=== PATIENT | female | born 1955 | race Caucasian/White ===

== ENCOUNTER 2016-09-15 12:45 | Emergency (ER) | payer OTHER, SELFPAY ==
[2016-09-15] MEDS ORDERED: Sodium Chloride 0.9% 500 ML IV ONE (13:18)
[2016-09-15 14:03] LABS: BASO % 0.6 % (0.0-2.0); EOS # 0.3 K/uL (0.0-0.7); EOS % 5.1 % (0.0-4.0); HEMATOCRIT 32.6 % (34.0-47.0); LYMPH # 1.9 K/uL (1.0-4.3); LYMPH % 27.7 % (20.0-40.0); MEAN CELL VOLUME 86.7 fL (81.0-99.0); MEAN CORPUSCULAR HEMOGLOBIN 28.7 pg (27.0-31.0); MEAN CORPUSCULAR HGB CONC 33.1 g/dL (33.0-37.0); MEAN PLATELET VOLUME 7.6 fL (7.2-11.7); MONO # 0.7 K/uL (0.0-0.8); MONO % 10.1 % (0.0-10.0); WHITE BLOOD COUNT 6.7 K/uL (4.8-10.8)
[2016-09-15 14:12] LABS: CHLORIDE 103 mmol/L (98-107); POTASSIUM 3.4 mmol/L (3.6-5.2); SODIUM 140 mmol/L (132-148)
[2016-09-15 14:14] LABS: ALB/GLOB RATIO 1.1 (1.0-2.1); ALKALINE PHOSPHATASE 112 U/L (38-126); AST/SGOT 32 U/L (14-36); BILIRUBIN,TOTAL 0.5 mg/dL (0.2-1.3); CARBON DIOXIDE 24 mmol/L (22-30); GFR AFRICAN-AMERICAN > 60; TOTAL PROTEIN 7.1 g/dL (6.3-8.3)
[2016-09-15 14:15] LABS: ALT/SGPT 13 U/L (9-52); BLOOD UREA NITROGEN 19 mg/dL (7-17); CALCIUM 8.7 mg/dl (8.6-10.4); GLUCOSE,RANDOM 88 mg/dL (65-105)
[2016-09-15 14:54] LABS: RBC URINE < 1 /hpf (0-3); URINE BILIRUBIN NEGATIVE (NEGATIVE); URINE BLOOD NEGATIVE (NEGATIVE); URINE COLOR Straw (YELLOW); URINE GLUCOSE (UA) NORMAL (Normal); URINE KETONE NEGATIVE (NEGATIVE); URINE LEUKOCYTE ESTERASE NEG Leu/uL (Negative); URINE PROTEIN NEGATIVE (NEGATIVE); URINE UROBILINOGEN NORMAL mg/dL (0.2-1.0); WBC URINE < 1 /hpf (0-5)
[2016-09-15] MEDS ORDERED: Sodium Chloride 0.9% 1,000 ML ONE (14:54)
--- NOTE | 2016-09-15 15:37 | RAD ---
HISTORY: Cough COMPARISON: Chest x-ray performed 05/11/16 TECHNIQUE: Chest PA and lateral FINDINGS: Examination limited by habitus. LUNGS: No focal consolidation. Please note that chest x-ray has limited sensitivity for the detection of pulmonary masses. PLEURA: No significant pleural effusion identified. No definite pneumothorax . CARDIOVASCULAR: Borderline cardiomegaly. OSSEOUS STRUCTURES: No acute osseous abnormality identified. VISUALIZED UPPER ABDOMEN: Unremarkable. OTHER FINDINGS: None. IMPRESSION: No focal consolidation, significant pleural effusion, or definite pneumothorax identified.
[2016-09-15 15:45] VITALS: BP 137/82; PULSE 72; RESP 16; TEMP 98.2; O2SAT 98
--- NOTE | 2016-09-15 15:53 | C.PDOC ---
Time Seen by Provider: 09/15/16 13:11 Chief Complaint (Nursing): Flu-like Symptoms History Per: Patient, Family, Shoe Treer History/Exam Limitations: language barrier Onset/Duration Of Symptoms: Days (about 2 months) Current Symptoms Are (Timing): Still Present Associated Symptoms: Fever (subjective), Sore Throat, Cough, Myalgias, Nasal Congestion Severity: Moderate Additional History Per: Prior Records Past Medical History Reviewed: Historical Data, Nursing Documentation, Vital Signs Vital Signs: Last Vital Signs Temp 98.2 F 09/15/16 15:44 Pulse 72 09/15/16 15:44 Resp 16 09/15/16 15:44 BP 137/82 09/15/16 15:44 Pulse Ox 98 09/15/16 15:44 - Medical History PMH: HTN Surgical History: Cholecystectomy Family History: States: Unknown Family Hx - Social History Hx Tobacco Use: No Hx Alcohol Use: No Hx Substance Use: No - Immunization History Hx Tetanus Toxoid Vaccination: No Hx Influenza Vaccination: No Hx Pneumococcal Vaccination: No Review Of Systems Except As Marked, All Systems Reviewed And Found Negative. Constitutional: Positive for: Malaise ENT: Positive for: Ear Pain, Nose Congestion (sneezing), Throat Pain Cardiovascular: Negative for: Chest Pain Respiratory: Positive for: Cough. Negative for: Shortness of Breath, Hemoptysis , Sputum Gastrointestinal: Negative for: Vomiting, Diarrhea Genitourinary: Negative for: Dysuria Musculoskeletal: Negative for: Neck Pain Skin: Positive for: Rash Neurological: Negative for: Weakness, Numbness, Seizures, Altered Mental Status Physical Exam - Physical Exam Appears: Non-toxic, No Acute Distress Skin: Normal Color, Warm, Dry, No Rash Head: Atraumatic, Normacephalic Eye(s): bilateral: Normal Inspection, PERRL, EOMI Ear(s): Bilateral: Normal Oral Mucosa: Moist, No Drooling, No Trismus Throat: Normal Neck: Normal ROM, Supple Lymphatic: No Adenopathy Cardiovascular: Rhythm Regular Respiratory: Normal Breath Sounds, No Accessory Muscle Use Gastrointestinal/Abdominal: Soft, No Tenderness Back: No CVA Tenderness Extremity: Normal ROM, No Pedal Edema, No Calf Tenderness Neurological/Psych: Oriented x3, Normal Motor, Normal Sensation ED Course And Treatment - Laboratory Results Result Diagrams: 09/15/16 13:57 09/15/16 13:57 Lab Interpretation: No Acute Changes O2 Sat by Pulse Oximetry: 98 Pulse Ox Interpretation: Normal - Radiology CXR: Viewed By Me, Read By Radiologist CXR Interpretation: Yes: No Acute Disease Reassessment Condition: Improved Disposition Counseled Patient/Family Regarding: Studies Performed, Diagnosis, Need For Followup, Rx Given - Disposition Referrals: [facility] [Outside] Disposition: HOME/ ROUTINE Disposition Time: 15:55 Condition: IMPROVED Additional Instructions: Follow up in the clinic for further evaluation and treatment. Return to the ER if you develop shortness of breath, worsening of symptoms or if you have any other concerns. Prescriptions: Hydrocortisone 1% Cream [Cortizone 1% Cream] 1 appl TP BID #1 tube Loratadine [Claritin] 10 mg PO DAILY PRN #30 tab PRN Reason: Allergy Symptoms Instructions: Allergies (ED) Forms: Gen Discharge Inst Citizen Of [place], General Discharge Instructions Print Language: KYRGYZ - Clinical Impression Clinical Impression: Allergic symptoms
== END 2016-09-15 16:31 | disposition home or self-care (01) ==
LOC: C.ER 12:45
DX: T78.40XA Allergy, unspecified, initial encounter (principal); X58.XXXA Exposure to other specified factors, initial encounter
CPT/HCPCS: 71020; 80053; 81001; 83690; 85025; 87804; 96361; 96374; 96375; 99283; J1885; J7040

== ENCOUNTER 2016-09-15 23:57 | Emergency (ER) | payer OTHER ==
[2016-09-16] MEDS ORDERED: Naproxen 550 mg Tab PO STA (00:38)
[2016-09-16] MEDS ORDERED: Naproxen 550 mg Tab PO ONE (00:45)
--- NOTE | 2016-09-16 00:56 | C.PDOC ---
History Of Present Illness I saw pt earlier in the day for same symptoms, pt returned to the ED tonight because she developed fever as well. Time Seen by Provider: 09/16/16 00:35 Chief Complaint (Nursing): Fever History Per: Patient, Family Onset/Duration Of Symptoms: Days Current Symptoms Are (Timing): Still Present Associated Symptoms: Fever, Sore Throat, Cough, Myalgias, Nasal Congestion Severity: Moderate Additional History Per: Prior Records Past Medical History Reviewed: Historical Data, Nursing Documentation, Vital Signs Vital Signs: Last Vital Signs Temp 101.0 F H 09/16/16 00:15 Pulse 110 H 09/16/16 00:15 Resp 20 09/16/16 00:15 BP 153/76 H 09/16/16 00:15 Pulse Ox 95 09/16/16 00:15 - Medical History PMH: HTN Surgical History: Cholecystectomy Family History: States: Unknown Family Hx - Social History Hx Tobacco Use: No Hx Alcohol Use: No Hx Substance Use: No - Immunization History Hx Tetanus Toxoid Vaccination: No Hx Influenza Vaccination: No Hx Pneumococcal Vaccination: No Review Of Systems Except As Marked, All Systems Reviewed And Found Negative. Constitutional: Positive for: Fever, Malaise ENT: Positive for: Nose Congestion, Throat Pain Cardiovascular: Negative for: Chest Pain Respiratory: Positive for: Cough. Negative for: Shortness of Breath Gastrointestinal: Negative for: Vomiting, Abdominal Pain, Diarrhea Genitourinary: Negative for: Dysuria Musculoskeletal: Negative for: Neck Pain, Back Pain, Leg Pain Neurological: Positive for: Headache. Negative for: Weakness, Numbness, Seizures, Altered Mental Status Physical Exam - Physical Exam Appears: Non-toxic, No Acute Distress Skin: Normal Color, Warm, Dry Head: Atraumatic, Normacephalic Eye(s): bilateral: PERRL, EOMI Neck: Normal ROM, Supple Cardiovascular: Rhythm Regular Respiratory: Normal Breath Sounds, No Accessory Muscle Use Gastrointestinal/Abdominal: Soft, No Tenderness Back: No CVA Tenderness Extremity: Normal ROM Neurological/Psych: Oriented x3, Normal Motor, Normal Sensation ED Course And Treatment O2 Sat by Pulse Oximetry: 95 Pulse Ox Interpretation: Normal Reassessment Condition: Improved Disposition Counseled Patient/Family Regarding: Studies Performed, Diagnosis, Need For Followup, Rx Given - Disposition Referrals: [facility] [Outside] Disposition: HOME/ ROUTINE Disposition Time: 00:57 Condition: IMPROVED Additional Instructions: Drink plenty of fluids. Follow up in the clinic. Return to the ER if you develop shortness of breath, vomiting, lethargy, stiff neck, worsening of symptoms or if you have any other concerns. Prescriptions: Acetaminophen [Tylenol Extra Strength] 2 tab PO Q6 PRN #30 tablet PRN Reason: Pain, Moderate (4-7) Azithromycin [Zithromax] 250 mg PO DAILY #4 tab Instructions: Cold Symptoms (ED) Print Language: MEXICAN - Clinical Impression Clinical Impression: Fever, Influenza-like illness
[2016-09-16 01:23] VITALS: BP 147/81; PULSE 107; RESP 18; TEMP 100; O2SAT 96
== END 2016-09-16 01:22 | disposition home or self-care (01) ==
LOC: C.ER 23:57
DX: J11.1 Influenza due to unidentified influenza virus with other respiratory manifestations (principal); R50.81 Fever presenting with conditions classified elsewhere

== ENCOUNTER 2016-11-01 15:48 | Emergency (ER) | payer OTHER ==
[2016-11-01 15:55] VITALS: TEMP 98.3
--- NOTE | 2016-11-01 16:45 | C.PDOC ---
History Of Present Illness 61 y/o female presents to ED with complaints of swelling and pain to the right knee for 3 days. Patient reports hearing a "crack" sound when walking and pain worsening when bending the knee. Patient denies injury or trauma to knee, numbness, weakness or any other complaints at this time. Time Seen by Provider: 11/01/16 15:57 Chief Complaint (Nursing): Lower Extremity Problem/Injury History Per: Patient History/Exam Limitations: no limitations Onset/Duration Of Symptoms: Days Current Symptoms Are (Timing): Still Present Past Medical History Reviewed: Historical Data, Nursing Documentation, Vital Signs Vital Signs: Last Vital Signs Temp 98.3 F 11/01/16 15:53 Pulse 82 11/01/16 15:53 Resp 20 11/01/16 15:53 BP 127/79 11/01/16 15:53 Pulse Ox 95 11/01/16 17:47 - Medical History PMH: HTN Surgical History: Cholecystectomy Family History: States: Unknown Family Hx - Social History Hx Tobacco Use: No Hx Alcohol Use: No Hx Substance Use: No - Immunization History Hx Tetanus Toxoid Vaccination: No Hx Influenza Vaccination: No Hx Pneumococcal Vaccination: No Review Of Systems Constitutional: Negative for: Fever, Chills Cardiovascular: Negative for: Chest Pain Gastrointestinal: Negative for: Nausea, Vomiting, Diarrhea Musculoskeletal: Positive for: Other (Knee pain) Skin: Negative for: Rash Neurological: Negative for: Weakness, Numbness Physical Exam - Physical Exam Appears: Non-toxic, No Acute Distress Skin: Normal Color, Warm Head: Atraumatic, Normacephalic Cardiovascular: Murmur Gastrointestinal/Abdominal: No Guarding, No Rebound Extremity: Normal ROM, No Pedal Edema, No Calf Tenderness, No Deformity, Swelling (Mild swelling to right knee lateral, no erythema or warmth, from) Pulses: Left Dorsalis Pedis: Normal, Right Dorsalis Pedis: Normal Neurological/Psych: Oriented x3, Normal Speech, Normal Cognition ED Course And Treatment O2 Sat by Pulse Oximetry: 95 (RA) Pulse Ox Interpretation: Normal Medical Decision Making Medical Decision Making: no fx noted on xray, mild suprapatellar effusion. hoda bandage applied and nsaids gven, with rx and cliinic follow up Disposition Counseled Patient/Family Regarding: Studies Performed, Diagnosis, Need For Followup, Rx Given - Disposition Referrals: [facility] [Outside] [facility] [Outside] Disposition: HOME/ ROUTINE Disposition Time: 17:49 Condition: STABLE Additional Instructions: Use un vendaje HODA en la rodilla derecha valeri el da para mayor comodidad; [place] ibuprofeno segn lo prescrito para el dolor con alimento. Seguimiento en la clnica; Llame para [facility] Prescriptions: Ibuprofen [Motrin] 600 mg PO TID #30 tab Instructions: Knee Pain (ED) Forms: General Discharge Instructions - Clinical Impression Clinical Impression: Right knee pain - PA / TESTING ENGINEER / Resident Statement MD/DO has reviewed & agrees with the documentation as recorded. - Scribe Statement The provider has reviewed the documentation as recorded by the Caseyibyousif Matson All medical record entries made by the Caseyibyousif were at my direction and personally dictated by me. I have reviewed the chart and agree that the record accurately reflects my personal performance of the history, physical exam, medical decision making, and the department course for this patient. I have also personally directed, reviewed, and agree with the discharge instructions and disposition.
--- NOTE | 2016-11-01 18:28 | RAD ---
PROCEDURE: Right Knee Radiographs. HISTORY: Right knee pain COMPARISON: Right knee radiographs performed 06/23/15 FINDINGS: BONES: No acute displaced fracture. JOINTS: No dislocation. JOINT EFFUSION: Probable tiny suprapatellar joint effusion. OTHER FINDINGS: None. IMPRESSION: Probable tiny suprapatellar joint effusion. No acute displaced fracture or dislocation identified. If symptoms persist, or if there is continued clinical concern, x-ray follow-up in 7-10 days should be considered. Study discussed with KIAH Arreguin on 11/01/16 at 6:25 p.m.
[2016-11-01 18:53] VITALS: BP 124/72; PULSE 72; RESP 18
[2016-11-04 13:18] VITALS: O2SAT 95
== END 2016-11-01 18:53 | disposition home or self-care (01) ==
LOC: C.ER 15:48
DX: M25.561 Pain in right knee (principal)

== ENCOUNTER 2017-06-09 08:17 | Day surgery (SDC) | payer OTHER, SELFPAY ==
--- NOTE | 2017-06-09 11:17 | PCM.SURG1 ---
Surgeon's Initial Post Op Note - Surgeon's Notes Surgeon: José Antonio Turner MD Rn House Supervisor: NONE Type of Anesthesia: Local Pre-Operative Diagnosis: Right thyroid nodule Operative Findings: 2.1 cm right thyroid nodule Post-Operative Diagnosis: right thyroid nodule Operation Performed: US guided FNA Specimen/Specimens Removed: 25 g FNA x 5 passes Estimated Blood Loss: EBL {In ML}: 1 Blood Products Given: N/A Drains Used: No Drains Post-Op Condition: Fair Date of Surgery/Procedure: 06/09/17 Time of Surgery/Procedure: 11:15
[2017-06-09 11:18] VITALS: BMI 33.8
--- NOTE | 2017-06-09 11:18 | CP.SDSHP ---
Same Day Surgery H & P - History Proposed Procedure: US guided FNA of right thyroid nodule Pre-Op Diagnosis: Thyroid nodule - Allergies Allergies: Allergies No Known Allergies Allergy (Verified 11/01/16 15:55) - Physical Exam Mental Status: Alert & Oriented x3 - Impression Impression: Pt with a 2.1 cm right thyroid nodule. Plan US guided FNA Pt. Evaluated Today:Candidate for Anesthesia & Procedure: No - Date & Time Date: 06/09/17 Time: 11:00 Short Stay Discharge - Short Stay Discharge Admitting Diagnosis/Reason for Visit: NONTOXIC SINGLE THYROID NODULE Disposition: HOME/ ROUTINE
[2017-06-09 11:40] VITALS: BP 145/74; PULSE 78; RESP 18; TEMP 98; O2SAT 100
--- NOTE | 2017-06-13 12:54 | US ---
PROCEDURE: Date of Procedure: 06/09/2017 PROCEDURE: 1. Ultrasound guided FNA of right thyroid nodule, CPT 60504 2. Ultrasound guidance for FNA, [id number] Medications: 3cc 1% Lidocaine HISTORY: Enlarged right thyroid nodule. TECHNIQUE: Following informed consent and procedure time-out, a limited ultrasound patient's neck confirmed the presence of a 2.1 cm complex right thyroid nodule which is predominantly solid. After the patient's neck was prepped and draped in the usual sterile fashion, the skin was anesthetized with 1% lidocaine. Ultrasound-guided fine needle aspiration was then performed of the dominant right thyroid nodule. A total of 5 passes were made into the nodule with 25 gauge needle under ultrasound guidance. The FNA specimen was sent for routine pathology. Post biopsy ultrasound showed no hematoma. IMPRESSION: Ultrasound-guided FNA of the dominant right thyroid nodule.
== END 2017-06-09 12:17 | disposition home or self-care (01) ==
LOC: C.SPRAD 08:17
PROVIDERS: ATTEND Radiology Vascular & Interventional Radiology
DX: E04.1 Nontoxic single thyroid nodule (principal)

== ENCOUNTER 2017-07-19 05:50 | Observation (INO) | payer SELFPAY ==
[2017-07-03 08:12] VITALS: BMI 42.9
[2017-07-19] MEDS ORDERED: Bupivacaine HCl 0.25% PF (10 ml) Inj ONE (07:30)
[2017-07-19] MEDS ORDERED: Lidocaine/Epinephrine 1% 1:100000 10 ML IJ ONE ×2 (07:30→07:31)
[2017-07-19] MEDS ORDERED: Absorbable Gelatin Sponge Size 12-7 ONE (07:31)
[2017-07-19] MEDS ORDERED: Propofol 10 mg/ml Inj (20 ML) ONE ×3 (07:43→08:45)
[2017-07-19] MEDS ORDERED: Midazolam 2 MG/2 ML VIAL ONE (07:43)
[2017-07-19] MEDS: ceFAZolin IV 2 gm in Dextrose 2 GM/50 ML BAG IVPB ONE ×2 (07:50→08:31)
[2017-07-19] MEDS ORDERED: Succinylcholine Chloride 20 mg/ml Syr (5 ml) IV ONE (08:13)
[2017-07-19] MEDS ORDERED: ePHEDrine 50 mg/ml Inj ONE (08:13)
[2017-07-19] MEDS ORDERED: Remifentanil 1 mg/3 ml Vial IV ONE ×2 (08:24→10:54)
[2017-07-19] MEDS ORDERED: Thrombin Topical 5,000 Int Units Spray Kit ONE (08:39)
[2017-07-19] MEDS ORDERED: HYDROmorphone 0.5 mg/0.5 ml ISec IVP PRN (12:06)
--- NOTE | 2017-07-19 12:12 | PCM.SURG1 ---
Surgeon's Initial Post Op Note - Surgeon's Notes Surgeon: Dr. Venegas Territory Sales Professional: Merchant [id number] Type of Anesthesia: General Endo Pre-Operative Diagnosis: Thryoid nodule- papillary thyroid carcinoma Operative Findings: see op note Post-Operative Diagnosis: as above Operation Performed: Total thyroidectomy with intraoperative nerve monitoring Specimen/Specimens Removed: Thyroid Estimated Blood Loss: EBL {In ML}: 20 Drains Used: No Drains Post-Op Condition: Good Date of Surgery/Procedure: 07/19/17 Time of Surgery/Procedure: 12:12
[2017-07-19 13:13] LABS: ABG ALLEN TEST POS; ARTERIAL BLOOD GAS HCO3 24.7 mmol/L (21-28); ARTERIAL BLOOD GAS O2 SAT 99.3 % (95-98); ARTERIAL BLOOD GAS PCO2 45 mm/Hg (35-45); ARTERIAL BLOOD GAS PH 7.36 (7.35-7.45); ARTERIAL BLOOD GAS PO2 155 mm/Hg (80-100); ARTERIAL BLOOD GAS TCO2 26.8 mmol/L (22-28)
[2017-07-19] MEDS ORDERED: Lactated Ringer's 1,000 ML IV ONE (15:00)
[2017-07-19] MEDS: Oxycodone/Acetaminophen 5/325 mg Tab PO PRN (18:51)
[2017-07-19] MEDS: ceFAZolin 1 GM in Sodium Chloride 0.9% 100 ML IVPB SCH (19:10)
[2017-07-19] MEDS: Sodium Chloride 0.9% 1,000 ML IV SCH (19:10)
--- NOTE | 2017-07-20 02:13 | OP ---
PROCEDURE DATE: 07/19/2017. PREOPERATIVE DIAGNOSIS: Papillary thyroid cancer. POSTOPERATIVE DIAGNOSIS: Papillary thyroid cancer. PROCEDURES: 1. Total thyroidectomy. 2. Intraoperative nerve monitoring. SURGEON: Dhaval Venegas MD TUFTER HAND: Nelida Tsang, PGY-1 resident. TYPE OF ANESTHESIA: General endotracheal tube anesthesia. ESTIMATED BLOOD LOSS: Around 20 mL. DRAINS: 15-Danish Prakash drain was placed. COMPLICATIONS: None. INTRAOPERATIVE FINDINGS: The patient had left thyroid nodule as well as right upper lobe thyroid nodule. DESCRIPTION OF PROCEDURE: On intraoperative step, this is a 62-year-old female, who was diagnosed with a papillary thyroid cancer, and the patient was consented for the total thyroidectomy with intraoperative nerve monitoring. The patient was brought to the OR, placed supine on the operating table after induction of the anesthesia. After induction of anesthesia, the neck and upper chest was prepped and draped in the usual sterile fashion. The nerve monitor electrode was placed subcutaneously and the curvilinear incision was made in the lower neck in the skin crease and after we incised the skin and subcutaneous tissue and the platysma, upper and lower flap was created. The upper flap was created up to the thyroid prominence and the lower flap was created up to the sternal notch and now the strap muscles were in midline and the thyroid gland was identified. First the right lobe dissection was done. The strap muscles were retracted laterally and the dissection was carried down to identify the upper pole vessel and the upper pole vessel was ligated in 2 different pedicles and inferior thyroid artery, inferior thyroid vein, recurrent laryngeal nerve and superior and inferior parathyroid gland was identified and now the inferior thyroid artery and inferior thyroid vein was doubly ligated and the thyroid was from the underlying trachea and both parathyroid was viable on the right side, now the pyramidal lobe was dissected as the dissection was continued the midline and to the left side and after that, the strap muscles on the left side was retracted. The thyroid nodule was identified. The superior thyroid pole was resected inferiorly and laterally and the pedicle vessels were ligated doubly with two pedicle and after dissecting inferior thyroid artery, inferior thyroid vein, recurrent laryngeal nerve, superior and inferior parathyroid gland was identified on the left side and intraoperative nerve monitoring was done to confirm the identified nerves on both sides and now the thyroid was dissected free from underlying trachea and it was sent to the table for pathology. There was proper hemostasis in each and every part of the procedure. The 15 Danish Prakash drain was placed. The strap muscles were approximated with 0 Vicryl, and the platysma with 3-0 Vicryl, skin with 4-0 Monocryl, and dry sterile dressing was applied. The patient tolerated the procedure well. Count of the instrument and gauze was correct. There were no apparent complication. The patient was extubated to OR, sent to the Postanesthesia Care Unit in stable condition. Dhaval Venegas MD
[2017-07-20] MEDS: ceFAZolin 1 GM in Sodium Chloride 0.9% 100 ML IVPB SCH ×3 (03:07→18:02)
[2017-07-20] MEDS: Sodium Chloride 0.9% 1,000 ML IV SCH ×2 (05:43)
[2017-07-20 06:27] LABS: BASO % 0.1 % (0.0-2.0); EOS % 0.1 % (0.0-4.0); LYMPH # 1.9 K/uL (1.0-4.3); LYMPH % 13.7 % (20.0-40.0); MEAN CELL VOLUME 87.1 fL (81.0-99.0); MEAN CORPUSCULAR HEMOGLOBIN 28.7 pg (27.0-31.0); MEAN PLATELET VOLUME 7.4 fL (7.2-11.7); MONO # 0.5 K/uL (0.0-0.8); MONO % 3.3 % (0.0-10.0); NEUT # 11.7 K/uL (1.8-7.0); NEUT % 82.8 % (50.0-75.0); NRBC % 0.1 % (0.0-2.0); RBC 3.84 Mil/uL (3.80-5.20); RED CELL DISTRIBUTION WIDTH 15.1 % (11.5-14.5); WHITE BLOOD COUNT 14.2 K/uL (4.8-10.8)
[2017-07-20 08:57] LABS: ALB/GLOB RATIO 1.1 (1.0-2.1); ALBUMIN 3.6 g/dL (3.5-5.0); BLOOD UREA NITROGEN 16 mg/dL (7-17); CALCIUM 6.7 mg/dl (8.6-10.4); GFR AFRICAN-AMERICAN > 60; GFR NON-AFRICAN AMERICAN > 60
[2017-07-20 08:58] LABS: ALT/SGPT 21 U/L (9-52); AST/SGOT 24 U/L (14-36)
[2017-07-20] MEDS: Potassium Chloride 20 mEq/15 ml LIQ UD PO SCH ×2 (10:33→17:54)
[2017-07-20] MEDS ORDERED: Calcium Chloride 1000 mg/10 ml Syringe IV ONE (15:06)
[2017-07-20] MEDS ORDERED: Calcium-Vit D 250 mg-125 Units Tab UD PO SCH (15:15)
--- NOTE | 2017-07-20 15:45 | CP.PCM.PN ---
<Rach Ortega - Last Filed: 07/20/17 15:40> Subjective - Date & Time of Evaluation Date of Evaluation: 07/20/17 Time of Evaluation: 07:00 - Subjective Subjective: Surgery: Dr. Venegas Pt seen and examined. No acute overnight events. Pt states she's feeling ok and admits to post-op pain around her neck/throat. Tolerating diet and talking w/o difficulty. Denies N/V, F/C, hoarseness or SOB. Objective - Vital Signs/Intake and Output Vital Signs (last 24 hours): Temp Pulse Resp BP Pulse Ox 98.7 F 87 18 152/74 H 100 07/20/17 14:34 07/20/17 14:34 07/20/17 14:34 07/20/17 14:34 07/20/17 08:57 Intake and Output: 07/20/17 07/20/17 06:59 18:59 Intake Total 1400 200 Output Total 43 30 Balance 1357 170 - Medications Medications: Current Medications Acetaminophen (Tylenol 325mg Tab) 650 mg PO Q6 PRN PRN Reason: Fever >100.4 F Last Admin: 07/20/17 14:30 Dose: 650 mg Calcium/Vitamin D (Oscal-D 250 Mg-125 Units Tab) 1 tab PO DAILY [facility] Hydrochlorothiazide (Microzide) 12.5 mg PO DAILY [facility] Last Admin: 07/20/17 10:32 Dose: 12.5 mg Cefazolin Sodium 1 gm/ Sodium (Chloride) 100 mls @ 100 mls/hr IVPB Q8H [facility] Last Admin: 07/20/17 11:46 Dose: 100 mls/hr Calcium Gluconate 4.65 meq/ (Sodium Chloride) 110 mls @ 100 mls/hr IV ONCE ONE Stop: 07/20/17 17:05 Losartan Potassium (Cozaar) 100 mg PO DAILY [facility] Last Admin: 07/20/17 10:32 Dose: 100 mg Morphine Sulfate (Morphine) 2 mg IVP Q4 PRN PRN Reason: Pain, moderate (4-7) Last Admin: 07/20/17 06:05 Dose: 2 mg Ondansetron HCl (Zofran Inj) 4 mg IVP Q6 PRN PRN Reason: Nausea/Vomiting Oxycodone/Acetaminophen (Percocet 5/325 Mg Tab) 1 tab PO Q4H PRN PRN Reason: Pain, moderate (4-7) Stop: 07/22/17 12:06 Last Admin: 07/19/17 18:51 Dose: 1 tab Pneumococcal Polyvalent Vaccine (Pneumovax 23 Vaccine) 0.5 ml IM .ONCE ONE Stop: 07/21/17 10:01 Potassium Chloride (Potassium Chloride Oral Soln) 20 meq PO BID MONIKA Stop: 07/20/17 18:01 Last Admin: 07/20/17 10:33 Dose: 20 meq - Labs Labs: 07/20/17 06:13 07/20/17 06:13 - Constitutional Appears: Well, No Acute Distress - Head Exam Head Exam: ATRAUMATIC, NORMOCEPHALIC - Eye Exam Eye Exam: Normal appearance - ENT Exam ENT Exam: Mucous Membranes Moist - Neck Exam Additional comments: dressing C/D/I, Prakash with sanguinous output 40cc/24hrs - Respiratory Exam Respiratory Exam: NORMAL BREATHING PATTERN - Cardiovascular Exam Cardiovascular Exam: RRR - GI/Abdominal Exam GI & Abdominal Exam: Soft. absent: Tenderness - Extremities Exam Extremities Exam: Normal Inspection - Neurological Exam Neurological Exam: Alert, Awake, Oriented x3 - Skin Skin Exam: Dry, Warm Assessment and Plan - Assessment and Plan (Free Text) Assessment: 62F s/p total thyroidectomy; POD#1 Plan: - IV and PO Calcium supplementation - monitor prakash output - AM labs for tomorrow - plan to DC home tomorrow - d/w Dr. Venegas who agrees with above Rach Ortega, PGY-3 Surgery <Dhaval Venegas - Last Filed: 07/21/17 14:50> Objective - Vital Signs/Intake and Output Vital Signs (last 24 hours): Temp Pulse Resp BP Pulse Ox 99.1 F 80 20 153/87 H 94 L 07/21/17 09:35 07/21/17 07:00 07/21/17 07:00 07/21/17 07:00 07/21/17 07:00 Intake and Output: 07/21/17 07/21/17 06:59 18:59 Intake Total 300 Output Total 12 2 Balance -12 298 - Medications Medications: Current Medications Acetaminophen (Tylenol 325mg Tab) 650 mg PO Q6 PRN PRN Reason: Fever >100.4 F Last Admin: 07/21/17 09:35 Dose: 650 mg Calcium/Vitamin D (Oscal-D 250 Mg-125 Units Tab) 1 tab PO DAILY [facility] Last Admin: 07/21/17 09:31 Dose: 1 tab Hydrochlorothiazide (Microzide) 12.5 mg PO DAILY [facility] Last Admin: 07/21/17 09:31 Dose: 12.5 mg Losartan Potassium (Cozaar) 100 mg PO DAILY [facility] Last Admin: 07/21/17 09:31 Dose: 100 mg Morphine Sulfate (Morphine) 2 mg IVP Q4 PRN PRN Reason: Pain, moderate (4-7) Last Admin: 07/20/17 06:05 Dose: 2 mg Ondansetron HCl (Zofran Inj) 4 mg IVP Q6 PRN PRN Reason: Nausea/Vomiting Oxycodone/Acetaminophen (Percocet 5/325 Mg Tab) 1 tab PO Q4H PRN PRN Reason: Pain, moderate (4-7) Stop: 07/22/17 12:06 Last Admin: 07/21/17 03:36 Dose: 1 tab Potassium Chloride (K-Dur 20 Meq Er Tab) 20 meq PO BID [facility] Last Admin: 07/21/17 09:31 Dose: 20 meq - Labs Labs: 07/21/17 06:05 07/21/17 06:05 Attending/Attestation - Attestation I have personally seen and examined this patient.: Yes I have fully participated in the care of the patient.: Yes I have reviewed all pertinent clinical information, including history, physical exam and plan: Yes Notes (Text): Pt was seen and examined at beside Agree with above note and assessment Pt is improving Replace Calcium Reg diet DC plan Plan d.w pt in detail Risk and benefit explained in detail.
[2017-07-20 15:57] VITALS: RESP 20
[2017-07-20] MEDS: Calcium-Vit D 250 mg-125 Units Tab UD PO SCH (17:54)
[2017-07-20] MEDS: Oxycodone/Acetaminophen 5/325 mg Tab PO PRN (18:01)
[2017-07-21] MEDS: ceFAZolin 1 GM in Sodium Chloride 0.9% 100 ML IVPB SCH (02:16)
[2017-07-21] MEDS: Oxycodone/Acetaminophen 5/325 mg Tab PO PRN (03:36)
[2017-07-21 06:15] LABS: BASO # 0.1 K/uL (0.0-0.2); BASO % 0.6 % (0.0-2.0); EOS # 0.2 K/uL (0.0-0.7); EOS % 1.6 % (0.0-4.0); HEMOGLOBIN 10.9 g/dL (11.0-16.0); LYMPH # 3.6 K/uL (1.0-4.3); MEAN CELL VOLUME 86.9 fL (81.0-99.0); MEAN CORPUSCULAR HEMOGLOBIN 29.7 pg (27.0-31.0); MEAN CORPUSCULAR HGB CONC 34.1 g/dL (33.0-37.0); MEAN PLATELET VOLUME 7.7 fL (7.2-11.7); MONO # 0.6 K/uL (0.0-0.8); MONO % 5.3 % (0.0-10.0); NEUT # 7.5 K/uL (1.8-7.0); NEUT % 62.5 % (50.0-75.0); RBC 3.68 Mil/uL (3.80-5.20); RED CELL DISTRIBUTION WIDTH 15.3 % (11.5-14.5)
[2017-07-21 06:38] LABS: ALB/GLOB RATIO 1.1 (1.0-2.1); ALBUMIN 3.7 g/dL (3.5-5.0); ALT/SGPT 19 U/L (9-52); AST/SGOT 26 U/L (14-36); BLOOD UREA NITROGEN 12 mg/dL (7-17); CALCIUM 6.5 mg/dl (8.6-10.4); GFR AFRICAN-AMERICAN > 60; GFR NON-AFRICAN AMERICAN > 60
[2017-07-21] MEDS: Calcium-Vit D 250 mg-125 Units Tab UD PO SCH (09:31)
[2017-07-21] MEDS ORDERED: Pneumococcal 23-Valent Vaccine IM ONE (10:00)
[2017-07-21] MEDS ORDERED: Potassium Chloride 20 mEq ER Tab PO SCH (10:00)
[2017-07-21] MEDS ORDERED: Influenza Vaccine 60 mcg/0.5 mL SYR (4YR UP) IM ONE (10:00)
[2017-07-21 16:05] VITALS: BP 152/94; PULSE 82; TEMP 97.9; O2SAT 97
--- NOTE | 2017-07-21 18:27 | CP.PCM.DIS ---
Provider - Provider Date of Admission: 07/19/17 12:06 Attending physician: Dhaval Venegas MD Time Spent in preparation of Discharge (in minutes): 10 Hospital Course - Lab Results Lab Results: Most Recent Lab Values WBC 12.0 K/uL (4.8-10.8) H 07/21/17 06:05 RBC 3.68 Mil/uL (3.80-5.20) L 07/21/17 06:05 Hgb 10.9 g/dL (11.0-16.0) L 07/21/17 06:05 Hct 32.0 % (34.0-47.0) L 07/21/17 06:05 MCV 86.9 fL (81.0-99.0) 07/21/17 06:05 MCH 29.7 pg (27.0-31.0) 07/21/17 06:05 MCHC 34.1 g/dL (33.0-37.0) 07/21/17 06:05 RDW 15.3 % (11.5-14.5) H 07/21/17 06:05 Plt Count 342 K/uL (130-400) 07/21/17 06:05 MPV 7.7 fL (7.2-11.7) 07/21/17 06:05 Neut % (Auto) 62.5 % (50.0-75.0) 07/21/17 06:05 Lymph % (Auto) 30.0 % (20.0-40.0) 07/21/17 06:05 [place] % (Auto) 5.3 % (0.0-10.0) 07/21/17 06:05 Eos % (Auto) 1.6 % (0.0-4.0) 07/21/17 06:05 Baso % (Auto) 0.6 % (0.0-2.0) 07/21/17 06:05 Neut # (Auto) 7.5 K/uL (1.8-7.0) H 07/21/17 06:05 Lymph # (Auto) 3.6 K/uL (1.0-4.3) 07/21/17 06:05 [place] # (Auto) 0.6 K/uL (0.0-0.8) 07/21/17 06:05 Eos # (Auto) 0.2 K/uL (0.0-0.7) 07/21/17 06:05 Baso # (Auto) 0.1 K/uL (0.0-0.2) 07/21/17 06:05 Puncture Site Rr 07/19/17 13:08 pCO2 45 mm/Hg (35-45) 07/19/17 13:08 pO2 155 mm/Hg (80-100) H 07/19/17 13:08 HCO3 24.7 mmol/L (21-28) 07/19/17 13:08 ABG pH 7.36 (7.35-7.45) 07/19/17 13:08 ABG Total CO2 26.8 mmol/L (22-28) 07/19/17 13:08 ABG O2 Saturation 99.3 % (95-98) H 07/19/17 13:08 ABG Base Excess -0.4 mmol/L (-2.0-3.0) 07/19/17 13:08 Micheal Test Pos 07/19/17 13:08 ABG Potassium 3.2 mmol/L (3.6-5.2) L 07/19/17 13:08 Sodium 141.0 mmol/l (132-148) 07/19/17 13:08 Chloride 106.0 mmol/L (98-107) 07/19/17 13:08 Glucose 137 mg/dl (65-105) H 07/19/17 13:08 Lactate 2.2 mmol/L (0.7-2.1) H 07/19/17 13:08 Liter Flow 12.0 07/19/17 13:08 Sodium 139 mmol/L (132-148) 07/21/17 06:05 Potassium 3.4 mmol/L (3.6-5.2) L 07/21/17 06:05 Chloride 102 mmol/L (98-107) 07/21/17 06:05 Carbon Dioxide 26 mmol/L (22-30) 07/21/17 06:05 Anion Gap 14 (10-20) 07/21/17 06:05 BUN 12 mg/dL (7-17) 07/21/17 06:05 Creatinine 0.7 mg/dL (0.7-1.2) 07/21/17 06:05 Est GFR ( Amer) > 60 07/21/17 06:05 Est GFR (Non-Af Amer) > 60 07/21/17 06:05 Random Glucose 95 mg/dL (65-105) 07/21/17 06:05 Calcium 6.5 mg/dl (8.6-10.4) L 07/21/17 06:05 Phosphorus 4.4 mg/dL (2.5-4.5) 07/21/17 06:05 Magnesium 1.7 mg/dL (1.6-2.3) 07/21/17 06:05 Total Bilirubin 0.3 mg/dL (0.2-1.3) 07/21/17 06:05 AST 26 U/L (14-36) 07/21/17 06:05 ALT 19 U/L (9-52) 07/21/17 06:05 Alkaline Phosphatase 126 U/L (38-126) 07/21/17 06:05 Total Protein 6.9 g/dL (6.3-8.3) 07/21/17 06:05 Albumin 3.7 g/dL (3.5-5.0) 07/21/17 06:05 Globulin 3.3 gm/dL (2.2-3.9) 07/21/17 06:05 Albumin/Globulin Ratio 1.1 (1.0-2.1) 07/21/17 06:05 Arterial Blood Potassium 3.2 mmol/L (3.6-5.2) L 02/ 13:08 - Hospital Course Hospital Course: Pt is a 62F with 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 Pt was taken to OR on 2/ for total thyroidectomy. She tolerated the surgery well. POD#1 pt was found to have Ca+ of 6.7 for which both PO & IV Ca+ was given. POD#2 lucas drain was removed, additional Ca+ was given and pt was DC home PO Ca+ supplements. Pt was tolerating diet and out of bed ambulating. Discharge Exam - Head Exam Head Exam: ATRAUMATIC, NORMOCEPHALIC - ENT Exam ENT Exam: Mucous Membranes Moist - Neck Exam Additional comments: incision C/D/I with steristrips in place - Respiratory Exam Respiratory Exam: NORMAL BREATHING PATTERN - Cardiovascular Exam Cardiovascular Exam: RRR - GI/Abdominal Exam GI & Abdominal Exam: Soft. absent: Distended, Tenderness - Neurological Exam Neurological exam: Alert, Oriented x3 - Skin Skin Exam: Dry, Warm Discharge Plan - Discharge Medications Prescriptions: Calcium Citrate 500 mg PO TID #90 tablet Cholecalciferol (Vitamin D3) [Vitamin D3] 6,000 unit PO DAILY 30 Days tab.chew traMADol [Ultram] 50 mg PO Q8H PRN #15 tab PRN Reason: Pain, Moderate (4-7) - Follow Up Plan Condition: GOOD Disposition: HOME/ ROUTINE Instructions: Calcium Citrate, Cholecalciferol, Tramadol, Thyroidectomy (DC), Managing Pain After Surgery Additional Instructions: Scripts for Calcium & Vit D. Ok to shower tomorrow. follow up with Dr. Venegas in 1-2 weeks. Call for appointment. Referrals: Dhaval Venegas MD [Staff Provider] -
== END 2017-07-21 16:15 | disposition home or self-care (01) ==
LOC: C.SDS 05:50 → C.9S 12:06 → C.6T 16:37
PROVIDERS: ADMIT Surgery Surgical Critical Care; ATTEND Surgery Surgical Critical Care
DX: C73 Malignant neoplasm of thyroid gland (principal); I10 Essential (primary) hypertension; E05.00 Thyrotoxicosis with diffuse goiter without thyrotoxic crisis or storm; R73.02 Impaired glucose tolerance (oral); E55.9 Vitamin D deficiency, unspecified; Z79.899 Other long term (current) drug therapy
CPT/HCPCS: 36415; 60240; 80053; 82803; 83735; 84100; 85025; 88307; G0378; J0131; J0610; J0690; J1170; J2001; J2250; J2270; J2704; J3010; J7030; J7040; J7120

== ENCOUNTER 2018-01-11 17:10 | Emergency (ER) | payer SELFPAY ==
[2018-01-11 17:11] VITALS: BMI 42.9
[2018-01-11 17:23] VITALS: O2SAT 96
--- NOTE | 2018-01-11 18:35 | C.PDOC ---
History Of Present Illness 62 year old female patient presents to the ER with c/o right knee pain for x1 week. Patient reports she applied ice once yesterday and took Tylenol with no relief. Patient also notes she has vague belly discomfort. Patient denies weakness/numbness. Time Seen by Provider: 01/11/18 17:54 Chief Complaint (Nursing): Abdominal Pain History Per: Patient History/Exam Limitations: no limitations Onset/Duration Of Symptoms: Days (x1 week) Current Symptoms Are (Timing): Still Present Past Medical History Reviewed: Historical Data, Nursing Documentation, Vital Signs Vital Signs: Last Vital Signs Temp 98.2 F 01/11/18 17:24 Pulse 76 01/11/18 17:24 Resp 20 01/11/18 17:24 BP 147/83 01/11/18 17:24 Pulse Ox 96 01/11/18 18:56 - Medical History PMH: Gall Bladder Disease, HTN, Hyperthyroidism Surgical History: Cholecystectomy Family History: States: Unknown Family Hx - Social History Hx Tobacco Use: No Hx Alcohol Use: No Hx Substance Use: No - Immunization History Hx Tetanus Toxoid Vaccination: No Hx Influenza Vaccination: No Hx Pneumococcal Vaccination: No Review Of Systems Except As Marked, All Systems Reviewed And Found Negative. Musculoskeletal: Positive for: Leg Pain (right knee pain ) Neurological: Negative for: Weakness, Numbness Physical Exam - Physical Exam Appears: Non-toxic, No Acute Distress Skin: Normal Color, Warm, Dry Head: Normacephalic Eye(s): bilateral: Normal Inspection Chest: Symmetrical Cardiovascular: Rhythm Regular Respiratory: Normal Breath Sounds Gastrointestinal/Abdominal: Soft, No Tenderness, No Distention, Other (obese) Back: No CVA Tenderness Extremity: Normal ROM, Capillary Refill (<2 sec), Other (ambulatory ) Extremity: Right: Joint Effusion (knee) Pulses: Left Dorsalis Pedis: Normal, Right Dorsalis Pedis: Normal Neurological/Psych: Oriented x3, Normal Speech, Normal Motor, Normal Sensation Gait: Steady ED Course And Treatment - Laboratory Results Result Diagrams: 01/11/18 18:51 01/11/18 18:51 Lab Interpretation: Normal (ua neg.) ECG: Interpreted By Me ECG Rhythm: Sinus Rhythm ECG Interpretation: Normal O2 Sat by Pulse Oximetry: 96 (RA) Pulse Ox Interpretation: Normal - Radiology CXR: Interpreted by Me CXR Interpretation: Yes: No Acute Disease - Other Rad Knee XR X-Ray: Read By Radiologist Interpretation: IMPRESSION: Normal radiographs of the right knee. Abdomen obstructive series X-Ray: Read By Radiologist Interpretation: IMPRESSION: Cardiomegaly. Ectatic aorta. Mild to moderate interstitial prominence may reflect infection or edema. Moderate constipation. abd x 2 X-Ray: Interpreted by Me (+FOS) Progress Note: motrin/ice pack Reevaluation Time: 19:17 Reassessment Condition: Improved Medical Decision Making Medical Decision Making: Impression: right knee pain with vague abdominal pain Plans: -- blood work -- XR knee -- XR obstructive series -- Toradol -- UA mild R joint effusion, no rubor/calor ? mild arthritis defer tap abd discomfort c/w constipation. Disposition Doctor Will See Patient In The: Office Counseled Patient/Family Regarding: Studies Performed, Diagnosis - Disposition Disposition: HOME/ ROUTINE Disposition Time: 19:18 Condition: GOOD Forms: [employer] (Uzbek) - Clinical Impression Clinical Impression: Arthritis of knee, Abdominal pain, colicky - Scribe Statement The provider has reviewed the documentation as recorded by the Cristofer Huerta Do Provider Attestation: All medical record entries made by the Caseyibyousif were at my direction and personally dictated by me. I have reviewed the chart and agree that the record accurately reflects my personal performance of the history, physical exam, medical decision making, and the department course for this patient. I have also personally directed, reviewed, and agree with the discharge instructions and disposition.
[2018-01-11 18:46] LABS: SQUAMOUS EPITHIAL 1 /hpf (0-5); URINE BACTERIA RARE (<OCC); URINE BILIRUBIN NEGATIVE (NEGATIVE); URINE BLOOD NEGATIVE (NEGATIVE); URINE CLARITY Clear (Clear); URINE COLOR Yellow (YELLOW); URINE GLUCOSE (UA) NORMAL (Normal); URINE LEUKOCYTE ESTERASE NEG Leu/uL (Negative); URINE PROTEIN 2+ mg/dL (NEGATIVE); URINE UROBILINOGEN NORMAL mg/dL (0.2-1.0)
--- NOTE | 2018-01-11 18:52 | RAD ---
Date of service: 01/11/2018 PROCEDURE: Right Knee Radiographs. HISTORY: chronic R knee pain, no injury COMPARISON: None. FINDINGS: BONES: Normal. No fracture. JOINTS: Normal. No osteoarthritis. JOINT EFFUSION: None. OTHER FINDINGS: None. IMPRESSION: Normal radiographs of the right knee.
[2018-01-11 18:54] LABS: BASO # 0.1 K/uL (0.0-0.2); BASO % 1.2 % (0.0-2.0); EOS # 0.3 K/uL (0.0-0.7); EOS % 3.1 % (0.0-4.0); HEMOGLOBIN 11.3 g/dL (11.0-16.0); LYMPH # 2.9 K/uL (1.0-4.3); LYMPH % 29.7 % (20.0-40.0); MEAN CELL VOLUME 89.6 fL (81.0-99.0); MEAN CORPUSCULAR HEMOGLOBIN 30.7 pg (27.0-31.0); MEAN CORPUSCULAR HGB CONC 34.3 g/dL (33.0-37.0); MEAN PLATELET VOLUME 7.8 fL (7.2-11.7); MONO # 0.6 K/uL (0.0-0.8); MONO % 5.6 % (0.0-10.0); NEUT % 60.4 % (50.0-75.0); NRBC % 0.1 % (0.0-2.0); RBC 3.7 Mil/uL (3.80-5.20); RED CELL DISTRIBUTION WIDTH 13.9 % (11.5-14.5); WHITE BLOOD COUNT 9.9 K/uL (4.8-10.8)
--- NOTE | 2018-01-11 18:54 | RAD ---
Date of service: 01/11/2018 PROCEDURE: Radiographs of the chest and abdomen (obstructive series) HISTORY: abd pain COMPARISON: Chest x-ray performed 07/05/17 TECHNIQUE: AP radiograph of the chest, with upright and supine radiographs of the abdomen. FINDINGS: CHEST: Cardiomegaly. Ectatic aorta. Mild to moderate interstitial prominence may reflect infection or edema. No significant pleural effusion. No definite pneumothorax. Please note that chest x-ray has limited sensitivity for the detection of pulmonary masses. ABDOMEN AND PELVIS: Nonobstructive bowel gas pattern. Moderate constipation. Degenerative changes of the spine. IMPRESSION: Cardiomegaly. Ectatic aorta. Mild to moderate interstitial prominence may reflect infection or edema. Moderate constipation.
[2018-01-11 19:07] LABS: ALB/GLOB RATIO 1.2 (1.0-2.1); ALBUMIN 4.2 g/dL (3.5-5.0); ALT/SGPT 21 U/L (9-52); AST/SGOT 33 U/L (14-36); BLOOD UREA NITROGEN 17 mg/dL (7-17); CALCIUM 8.9 mg/dl (8.6-10.4); GFR NON-AFRICAN AMERICAN > 60; LIPASE 190 U/L (23-300)
[2018-01-11 19:56] VITALS: BP 138/67; PULSE 65; RESP 17; TEMP 99.3
== END 2018-01-11 19:54 | disposition home or self-care (01) ==
LOC: C.ER 17:10
DX: M13.861 Other specified arthritis, right knee (principal); R10.84 Generalized abdominal pain
CPT/HCPCS: 73562; 74022; 80053; 81001; 83690; 84484; 85025; 96374; 99284; J1885

== ENCOUNTER 2018-02-01 18:13 | Emergency (ER) | payer SELFPAY ==
[2018-02-01 18:14] VITALS: BMI 42.9
[2018-02-01 18:20] VITALS: BP 146/73; PULSE 77; RESP 16; TEMP 98.8; O2SAT 97
--- NOTE | 2018-02-01 19:05 | C.PDOC ---
History Of Present Illness 62 year old female presents to ED for evaluation of left ear pain that radiates to jaw and throat associated with difficulty swallowing starting today. Patient states she also feels a lump by the left ear. Also reports feeling chills. Denies fever, nausea, vomiting and other associated symptoms. Time Seen by Provider: 02/01/18 18:48 Chief Complaint (Nursing): Back Pain History Per: Patient History/Exam Limitations: None Onset/Duration Of Symptoms: Hrs Current Symptoms Are (Timing): Still Present Past Medical History Reviewed: Historical Data, Nursing Documentation, Vital Signs Vital Signs: Last Vital Signs Temp 98.8 F 02/01/18 18:17 Pulse 77 02/01/18 18:17 Resp 16 02/01/18 18:17 BP 146/73 02/01/18 18:17 Pulse Ox 97 02/01/18 19:49 - Medical History PMH: Gall Bladder Disease, HTN, Hyperthyroidism Denies: Chronic Kidney Disease Surgical History: Cholecystectomy Family History: States: Unknown Family Hx - Social History Hx Tobacco Use: No Hx Alcohol Use: No Hx Substance Use: No - Immunization History Hx Tetanus Toxoid Vaccination: No Hx Influenza Vaccination: No Hx Pneumococcal Vaccination: No Review Of Systems Constitutional: Positive for: Chills. Negative for: Fever ENT: Positive for: Ear Pain (left ear pain radiating to the jaw), Throat Pain ( and painful swallowing ), Other (feels lump under the left ear ) Gastrointestinal: Negative for: Nausea, Vomiting Physical Exam - Physical Exam Appears: Well, Non-toxic, No Acute Distress Skin: Warm, Dry, No Rash Head: Atraumatic, Normacephalic Eye(s): bilateral: Normal Inspection Ear(s): Left: TM Erythema (+ pre-auricular lymph node swelling, no mastoid tenderness) Throat: Normal, No Erythema, No Exudate Neck: Normal Chest: Symmetrical Cardiovascular: Rhythm Regular, No Murmur Respiratory: Normal Breath Sounds, No Rales, No Rhonchi, No Wheezing Extremity: Bilateral: Atraumatic, Normal Color And Temperature Neurological/Psych: Oriented x3, Normal Speech ED Course And Treatment O2 Sat by Pulse Oximetry: 97 (RA) Pulse Ox Interpretation: Normal Medical Decision Making Medical Decision Making: Impression: otitis On re-examination, patient is resting comfortably in no acute distress. Patient feels comfortable going home and will be discharged. Prescribed Amoxicillin. Patient given follow up instructions. Instructed to return to ER if symptoms worsen or new symptoms arise. Disposition Counseled Patient/Family Regarding: Diagnosis, Need For Followup, Rx Given - Disposition Referrals: [facility] [Outside] [facility] [Outside] Avni Scott MD [Staff Provider] - Disposition: HOME/ ROUTINE Disposition Time: 19:02 Condition: STABLE Additional Instructions: [place] ibuprofeno cada 6 horas para el dolor / fiebre [place] amoxicilina 2 veces al da valeri 10 barnett Evite usar qtips No nadar Prescriptions: Amoxicillin 875 mg PO Q12 #20 tablet Instructions: Ear Infections (Otitis Media) Forms: [employer] (Surinamese) Print Language: MALDIVIAN - POA Present On Arrival: None - Clinical Impression Clinical Impression: Otitis media - PA / RESIDENCY PROGRAM COORDINATOR / Resident Statement MD/DO has reviewed & agrees with the documentation as recorded. - Scribe Statement The provider has reviewed the documentation as recorded by the Scribe (Joanne Flores) All medical record entries made by the Scribe were at my direction and personally dictated by me. I have reviewed the chart and agree that the record accurately reflects my personal performance of the history, physical exam, medical decision making, and the department course for this patient. I have also personally directed, reviewed, and agree with the discharge instructions and disposition.
== END 2018-02-01 19:26 | disposition home or self-care (01) ==
LOC: C.ER 18:13
DX: H66.90 Otitis media, unspecified, unspecified ear (principal); I10 Essential (primary) hypertension; E05.90 Thyrotoxicosis, unspecified without thyrotoxic crisis or storm

== ENCOUNTER 2018-05-06 17:48 | Emergency (ER) | payer OTHER ==
[2018-05-06 17:49] VITALS: BMI 42.9
[2018-05-06 18:00] VITALS: BP 146/82; PULSE 86; RESP 16; TEMP 98.3; O2SAT 97
[2018-05-06] MEDS ORDERED: Albuterol 0.083% Inhal Sol (2.5 mg/3 mL) UD IH STA (18:16)
[2018-05-06 18:23] LABS: SQUAMOUS EPITHIAL < 1 /hpf (0-5); URINE BILIRUBIN NEGATIVE (NEGATIVE); URINE BLOOD NEGATIVE (NEGATIVE); URINE CLARITY Clear (Clear); URINE COLOR Straw (YELLOW); URINE GLUCOSE (UA) NORMAL (Normal); URINE LEUKOCYTE ESTERASE NEG Leu/uL (Negative); URINE PROTEIN 2+ mg/dL (NEGATIVE); URINE UROBILINOGEN NORMAL mg/dL (0.2-1.0)
[2018-05-06] MEDS ORDERED: Albuterol 0.083% Inhal Sol (2.5 mg/3 mL) UD ONE (18:23)
--- NOTE | 2018-05-06 19:00 | C.PDOC ---
History Of Present Illness 62 y/o female presents to ED complaining of fever, chills, body aches, headache, and mild dysuria x1-2 days. Patient denies cough, sore throat, runny nose, abdominal pain, nausea, vomiting, diarrhea, or sick contacts. Time Seen by Provider: 05/06/18 18:02 Chief Complaint (Nursing): Fever History Per: Patient History/Exam Limitations: no limitations Onset/Duration Of Symptoms: Days Current Symptoms Are (Timing): Still Present Past Medical History Reviewed: Historical Data, Nursing Documentation, Vital Signs Vital Signs: Last Vital Signs Temp 98.3 F 05/06/18 17:58 Pulse 86 05/06/18 17:58 Resp 16 05/06/18 17:58 BP 146/82 05/06/18 17:58 Pulse Ox 97 05/06/18 17:58 - Medical History PMH: Gall Bladder Disease, HTN, Hyperthyroidism Denies: Chronic Kidney Disease Surgical History: Cholecystectomy Family History: States: No Known Family Hx - Social History Hx Tobacco Use: No Hx Alcohol Use: No Hx Substance Use: No - Immunization History Hx Tetanus Toxoid Vaccination: No Hx Influenza Vaccination: No Hx Pneumococcal Vaccination: No Review Of Systems Constitutional: Positive for: Fever, Chills, Weakness ENT: Negative for: Nose Discharge, Throat Pain Respiratory: Negative for: Cough Gastrointestinal: Negative for: Nausea, Vomiting, Abdominal Pain, Diarrhea Genitourinary: Positive for: Dysuria (mild) Neurological: Positive for: Headache Physical Exam - Physical Exam Appears: Non-toxic, Other (Uncomfortable) Skin: Warm, Dry, No Rash Head: Atraumatic, Normacephalic Eye(s): bilateral: Normal Inspection, PERRL, EOMI Ear(s): Bilateral: Normal Oral Mucosa: Moist Throat: Normal, No Erythema, No Exudate Chest: Symmetrical Cardiovascular: Rhythm Regular, No Murmur Respiratory: Normal Breath Sounds, No Rales, No Rhonchi, Wheezing (scant expiratory wheezing) Gastrointestinal/Abdominal: Soft, No Tenderness Extremity: Bilateral: Atraumatic, Normal ROM Neurological/Psych: Oriented x3, Normal Speech ED Course And Treatment O2 Sat by Pulse Oximetry: 97 (RA) Pulse Ox Interpretation: Normal Progress Note: Checked urine and swabbed patient for flu. Both were negative. Reassured patient that her symptoms are viral. Patient was given albuterol and ibuprofen. On re-assessment, she felt better and sounded fine. Patient will be discharged with motrin and albuterol. Instructed her to follow up with her PMD and to drink plenty of fluids. Disposition Counseled Patient/Family Regarding: Diagnosis, Need For Followup, Rx Given - Disposition Referrals: Bernice Cade [Resident] - [facility] [Outside] Disposition: HOME/ ROUTINE Disposition Time: 19:00 Condition: STABLE Additional Instructions: FOLLOW UP WITH YOUR DOCTOR/CLINIC IN 1-2 DAYS USE MEDICATIONS DIRECTED DRINK PLENTY OF FLUIDS RETURN TO EMERGENCY ROOM IF YOUR SYMPTOMS BECOME WORSE SEGUIR CON MEYER MDICO / CLNICA EN 1-2 [place] UTILICE MEDICAMENTOS MARY SE DIRIGE BEBER MUCHO LQUIDO VUELVA A LA VICENTE DE EMERGENCIA SI NAHOMY SNTOMAS SE HACEN PEOR Prescriptions: Albuterol HFA [Ventolin HFA 90 mcg/actuation (8 g)] 0.09 mg IH Q4 PRN #1 puff PRN Reason: Wheezing Ibuprofen [Motrin Tab] 600 mg PO Q6 PRN #30 tab PRN Reason: fever/pain Instructions: Viral Syndrome (DC) Forms: [employer] (Belgian) Print Language: [place] ISLANDER - Clinical Impression Clinical Impression: Bronchospasm, Viral upper respiratory infection - Scribe Statement The provider has reviewed the documentation as recorded by the Cristofer Lee Provider Attestation: All medical record entries made by the Caseyibyousif were at my direction and personally dictated by me. I have reviewed the chart and agree that the record accurately reflects my personal performance of the history, physical exam, medical decision making, and the department course for this patient. I have also personally directed, reviewed, and agree with the discharge instructions and disposition.
== END 2018-05-06 19:18 | disposition home or self-care (01) ==
LOC: C.ER 17:48
DX: J98.01 Acute bronchospasm (principal); J06.9 Acute upper respiratory infection, unspecified; I10 Essential (primary) hypertension

== ENCOUNTER 2018-06-05 07:19 | Outpatient (CLI) | payer OTHER | END 2018-06-05 07:20 | disposition home or self-care (01) | LOC: C.LAB 07:19 | DX: C73 Malignant neoplasm of thyroid gland (principal); E03.0 Congenital hypothyroidism with diffuse goiter; E23.1 Drug-induced hypopituitarism ==

== ENCOUNTER 2018-07-26 13:16 | Outpatient (CLI) | payer OTHER | END 2018-07-26 13:17 | disposition home or self-care (01) | LOC: C.LAB 13:16 | DX: R80.9 Proteinuria, unspecified (principal); I10 Essential (primary) hypertension; E03.9 Hypothyroidism, unspecified ==

== ENCOUNTER 2018-09-21 09:13 | Outpatient (CLI) | payer OTHER | END 2018-09-21 09:14 | disposition home or self-care (01) | LOC: C.LAB 09:13 | DX: C73 Malignant neoplasm of thyroid gland (principal); E03.9 Hypothyroidism, unspecified; E55.9 Vitamin D deficiency, unspecified ==